=== PATIENT | male | born 1965 | race Caucasian/White ===

== ENCOUNTER 2020-01-30 14:24 | Inpatient (IN) | payer OTHER ==
[~2020-01-30] VITALS: Ht 170.2 cm; Wt 50.0 kg
[2020-01-30 14:27] VITALS: Ht 170.2 cm; Wt 50.0 kg
--- NOTE | 2020-01-30 14:37 | NUR ---
TO [place] AREA VIA W/C.
--- NOTE | 2020-01-30 14:40 | NUR ---
PT ASSISTED TO BED AND PLACED ON MONITOR. PT AAOX4 WITH C/O INCREASED SWELLING IN BLE AND STOMACH WITH INCREASED SOB WITH EXERTION X 3 WEEKS. PT ALSO STATES BLISTER FORMATION WITH DRAINAGE TO BLE. PT NOTED TO HAVE 3+ PITTING EDEMA WITH A DRAINING BLISTER TO LLE AND A LARGE ROUND ABD. PT NOTED WITH DISCOLORATION TO ALL EXTREMITES AND INCREASED SOB WITH EXERTION/SPEAKING. PT STATES HE HAD POLYURIA 3 WEEKS AGO WHEN ALL HIS SYMPTOMS STARTED GETTING WORSE WITH DARK URINE BUT HAS SINCE STOPPED. PT STATES HE HAS NOT SEEN HIS PCP IN OVER A YEAR. EMT AT BEDSIDE FOR EKG.
[2020-01-30 15:29] LABS: BASOPHIL % 0.6 % (0-2); PLATELET COUNT 248 x10^3mcL (130-400)
[2020-01-30 15:32] LABS: RED CELL DISTRIBUTION WIDTH 16.3 % (11.5-14.5)
--- NOTE | 2020-01-30 15:33 | NUR ---
PLACED PT ON 10L SIMPLE MASK PER ABG RESULT. OK PER DR. HUNT. PT SPO2:100%.
--- NOTE | 2020-01-30 15:35 | NUR ---
EDITORIAL CLERK HERE, APPLIED HIGH FLOW O2 MASK BECAUSE OF ABNORMAL ABG RESULTS.
--- NOTE | 2020-01-30 15:41 | NUR ---
RADIOLOGY DEPT AT BEDSIDE, PORTABLE CXR COMPLETED. STILL HAS PANTING TYPE RESPIRATIONS. ALERT.
[2020-01-30 15:54] LABS: CARBON DIOXIDE 23.5 mmol/L (21-32); CHLORIDE SERUM 101 mmol/L (98-107); CREATININE SERUM 1.9 mg/dL (0.7-1.3); GFR1 40 mL/min; GLUCOSE SERUM 81 mg/dL (74-106); POTASSIUM SERUM 4.5 mmol/L (3.5-5.1); SODIUM SERUM 136 mmol/L (136-145)
[2020-01-30 16:01] LABS: ALKALINE PHOSPHATASE 116 U/L (46-116); ALT/SGPT 43 U/L (16-63); AST/SGOT 64 U/L (15-37); BILIRUBIN TOTAL 2.81 mg/dL (0.20-1.00); C REACTIVE PROTEIN 5.7 mg/dL (<=0.9); LACTIC DEHYDROGENASE (LDH) 404 U/L (100-190)
[2020-01-30 16:12] LABS: ALBUMIN 2.7 g/dL (3.4-5.0)
--- NOTE | 2020-01-30 16:17 | NUR ---
ultra sound dept at bedside. portable ultra sound of lower ext in progress.
--- NOTE | 2020-01-30 16:28 | NUR ---
PT STATED HE TAKES BP MED, DOESN'T KNOW THE NAME. NOTED ON MED REC.
--- NOTE | 2020-01-30 16:50 | NUR ---
IV BOLUS IN RT AC PATENT. PORTABLE ULTRA SOUND COMPLETED.
--- NOTE | 2020-01-30 17:14 | NUR ---
TO CT VIA [place] AT THIS TIME.
--- NOTE | 2020-01-30 17:40 | NUR ---
RETURNS FROM CT AT THIS TIME
--- NOTE | 2020-01-30 17:43 | NUR ---
DR. PRICE HERE AT BEDSIDE SPEAKING WITH PT. 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
--- NOTE | 2020-01-30 18:55 | NUR ---
LAYING ON RT SIDE. SATURATIONS STABLE @ 99 - 100 %. REMAINS IN S.T. IN THE 130'S. LOWER EXT CONTINUE TO BE MOTTLED.
--- NOTE | 2020-01-30 19:20 | NUR ---
REPORT CALLED TO VAUGHN IN ICU. SENIOR PORTFOLIO ANALYST STAFF REMINDED TO TRANSPORT PT UP [place]. PT IS ALERT, TALKING ON HIS CELL PHONE. VITAL SIGNS STABLE. HR CONTINUES TO BE TACHY IN 130'S.
[2020-01-30 20:21] VITALS: BP 108/78
--- NOTE | 2020-01-30 20:53 | NUR ---
RECEIVED PT FROM [facility]. PT IS STABLE ON 10L REGULAR MASK. PT BREATHING IS E/U. LUNG SOUNDS ARE CRACKLES UPPER/LOWER LOBES BILATERALLY. PT V/S TEMP 97.5, BP 108/78, MAP 86, RR 24, O2 98%. PT IS SINUS TACHY. PT IS AMBULATORY BUT USING URINAL AT THIS TIME. PT HAS EDEMA BUE/BLE +3. PT IS ON 10L REGULAR MASK. PT IS A/O X 4. BED IN LOW POSITION.
--- NOTE | 2020-01-30 21:30 | NUR ---
PT REQUESTING FOOD. NO DIET IN THE SYSTEM. PT CURRENTLY HAS ICE CHIPS. P/CALL TO DR BERNARD REQUESTED DIET FOR PT. ENTERED CARDIAC DIET. CAFATERIA CLOSED AT THIS TIME. GAVE PT SANDWHICH, MILK AND A PUDDING.
[2020-01-30 23:55] VITALS: BP 118/89
[2020-01-31 00:05] VITALS: BP 118/89
--- NOTE | 2020-01-31 00:10 | NUR ---
PHONE CALL FROM LAB REPORTING LACTIC ACID OF 5.9. PAGED DR ROMERO. RECEIVED CALL BACK INFORMED HER OF NEW LACTIC ACID VALUE AND PREVIOUS VALUE AT 1820 OF 4.6. SHE WILL REVIEW. NO NEW ORDERS AT THIS TIME.
--- NOTE | 2020-01-31 00:53 | NUR ---
ORDER ENTERED FOR SCD'S. UNABLE TO PUT SCD'S ON THE PATIENT WITH CONDITION OF HIS LEGS. PT DOES MOVE AROUND AND REPOSITION IN BED OFTEN.
[2020-01-31 03:39] VITALS: BP 130/92
--- NOTE | 2020-01-31 04:39 | NUR ---
PHONE CALL TO DR. ROMERO DUE TO PATIENT HR 143 AND RR'S 37. AWAITING ORDERS.
--- NOTE | 2020-01-31 05:52 | NUR ---
PT COMPLAINING OF NAUSEA. GAVE ZOFRAN
--- NOTE | 2020-01-31 06:14 | NUR ---
UNABLE TO OBTAIN ABG. DR ROMERO MADE AWARE.
[2020-01-31 08:00] VITALS: BP 109/71
--- NOTE | 2020-01-31 10:53 | NUR ---
PT REMAINS STABLE AT THIS TIME. REMAINS ON 10L O2 VIA SIMPLE MASK. NO C/O PAIN OR DISTRESS. NV COOPERATIVE WITH CARE. IV'S INTACT AND [ATENT. WILL CONT TO MONITOR.
[2020-01-31 12:00] VITALS: BP 102/75
[2020-01-31 13:04] LABS: BASOPHIL % 1.9 % (0-2); PLATELET COUNT 207 x10^3mcL (130-400)
[2020-01-31 13:06] LABS: RED CELL DISTRIBUTION WIDTH 16.6 % (11.5-14.5)
[2020-01-31 13:07] LABS: BILIRUBIN DIRECT 1.96 mg/dL (0.0-0.2); BILIRUBIN TOTAL 2.66 mg/dL (0.20-1.00)
[2020-01-31 13:11] LABS: ALBUMIN 2.6 g/dL (3.4-5.0)
[2020-01-31 13:25] LABS: CALCIUM 9.1 mg/dL (8.5-10.1); CARBON DIOXIDE 21.3 mmol/L (21-32); CREATININE SERUM 1.6 mg/dL (0.7-1.3); MAGNESIUM 1.9 mg/dL (1.8-2.4); PHOSPHOROUS 4.2 mg/dL (2.5-4.9); POTASSIUM SERUM 4.3 mmol/L (3.5-5.1)
--- NOTE | 2020-01-31 13:52 | NUR ---
PICC LINE NURSE, RIOS CALLED. TOA 1600 FOR PICC INSERTION.
--- NOTE | 2020-01-31 14:44 | NUR ---
PT PLACED ON NPO STATUS AT THID TIME FOR ABDOMINAL US SCHEDULAED LATER. PT MADE AWARE.
[2020-01-31 15:20] VITALS: BP 129/88
--- NOTE | 2020-01-31 18:20 | NUR ---
PICC RN KERI AT BEDSIDE FOR PICC INSERTION. PT STABLE AT THIS TIME.
--- NOTE | 2020-01-31 19:21 | NUR ---
REPORT GIVEN TO GABINO MENDES. ALL QUESTIONS ANSWERED.
--- NOTE | 2020-01-31 19:25 | NUR ---
XRAY, ULTRASOUND BOTH HERE AT THIS TIME.
[2020-01-31 20:10] VITALS: BP 125/90
--- NOTE | 2020-01-31 22:25 | NUR ---
COLLECTED URINE SAMPLE FROM PT, SENT TO LAB
--- NOTE | 2020-01-31 22:40 | NUR ---
DR. FUNES REQUESTING UPDATE ON PT. GAVE UPDATE. DR SORTO'Briigdo ZOSYN AND VANCOMYCIN AND REQUESTED ROCEPHEN ORDERED 1G DAILY. PLACED ORDER IN SYSTEM.
[2020-02-01] VITALS (7 sets, daily range): BP systolic 127–148; BP diastolic 50–100
[2020-02-01 00:26] LABS: UA SPECIFIC GRAVITY 1.025 (1.005-1.035); microscopic required? YES; urine erythrocyte NEGATIVE (NEGATIVE)
[2020-02-01 00:58] LABS: AMPHETAMINE QUAL UR POSITIVE (See below)
[2020-02-01 06:09] LABS: BASOPHIL % 0.9 % (0-2); PLATELET COUNT 215 x10^3mcL (130-400)
[2020-02-01 06:20] LABS: CALCIUM 8.9 mg/dL (8.5-10.1); CARBON DIOXIDE 26.6 mmol/L (21-32); CREATININE SERUM 1.4 mg/dL (0.7-1.3); MAGNESIUM 1.8 mg/dL (1.8-2.4); PHOSPHOROUS 3.6 mg/dL (2.5-4.9); POTASSIUM SERUM 3.9 mmol/L (3.5-5.1)
[2020-02-01 06:21] LABS: RED CELL DISTRIBUTION WIDTH 16.5 % (11.5-14.5)
--- NOTE | 2020-02-01 06:26 | NUR ---
DR SKINNER REQUESTING UPDATE ON PATIENT. PT NOW ON REBREATHER MASK 15L O2 SATS NOW IN THE 90'S/100. PT IS REQUESTING BANDAGE CHANGE AND WOUND CARE FOR HIS LEG (BANDAGED). LET DR KNOW HE STATES HE WILL PUT IN WOUND CONSULT. PT AMBULATORY, SITS ON EDGE OF BED AND REPOSITIONS HIMSELF. NO NEW ORDERS, ALL QUESTIONS ANSWERED.
--- NOTE | 2020-02-01 07:38 | NUR ---
PATIENT HR IN THE 150-160. PATIENT ASSESSED AT THIS TIME AND STATES " NO CHEST PAIN, I AM FINE" DR BARAJAS PAGED. PATIENT STABLE AT THIS TIME, WILL CONTINUE TO MONITOR.
--- NOTE | 2020-02-01 08:13 | NUR ---
DR SHERIFF AT BEDSIDE. ALL UPDATES PROVIDED. NEW ORDERS TO CARRY OUT.
--- NOTE | 2020-02-01 08:15 | NUR ---
DR SHERIFF AT BEDSIDE ALL UPDATES PROVIDED, NO NEW ORDERS AT THIS TIME. PATIENT STABLE WILL CONTINUE TO MONITOR
--- NOTE | 2020-02-01 10:26 | NUR ---
DR ABBASI AND RESIDENTS AT BEDSIDE. ALL UPDATES PROVIDED AT THIS TIME. AWAITING NEW ORDERS. WILL CONT TO MONITOR PT.
--- NOTE | 2020-02-01 10:36 | NUR ---
dr don and residents at bedside. all updates given no new orders at this time.
--- NOTE | 2020-02-01 14:50 | NUR ---
WOUND NURSE, KORI AT BEDSIDE FOR WOUND CONSULT.
--- NOTE | 2020-02-01 15:30 | NUR ---
PT IS NOW ON 8L O2 VIA OXIMIZER. TOLERATING WELL. NO DISTRESS NOTED, BREATHING E/U. O2 SAT >95%. WILL CONTINUE TO MONITOR.
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
--- NOTE | 2020-02-01 16:28 | NUR ---
TYING MACHINE OPERATOR LUMBER NOT HERE AT THIS TIME AND UNABLE TO DO ECHO, WILL DO TOMORROW MORNING. DR BARJAAS INFORMED.
--- NOTE | 2020-02-01 18:30 | NUR ---
DR CORNEJO AT BEDSIDE. ALL UPDATES PROVIDED. MADE AWARE OF PT'S HR >[address] ASSESSING PT AT THIS TIME. NO NEW ORDERS.
--- NOTE | 2020-02-01 19:17 | NUR ---
REPORT GIVEN TO GABINO PARK. ALL QUESTIONS ANSWERED.
--- NOTE | 2020-02-01 19:38 | NUR ---
RECEIVED REPORT FROM OFFGOING RN. PATIENT HAS BEEN SEEN BY THE NOTEMAN AND IS WISHING TO LEAVE AMA. DR ROMERO INFORMED. DR. SAINZ WITH PATIENT'S WISH.
--- NOTE | 2020-02-01 20:51 | NUR ---
DR ROMERO SPOKE WITH THE PATIENT WHO ADMITTED TO BEING AFRAID OF HIS ILLNESS. PATIENT HAS STATED HE WILL "HANG AROUND." PATIENT COOPERATIVE AT THIS TIME. ABLE TO PUT MONITOR LEADS ON HIM, BP CUFF AND PULSE OXIMETER. PATIENT STATED HE WAS HUNGRY AND WANTED A PEANUT BUTTER AND JELLY SANDWICH AND MILK. SAME GIVEN TO PATIENT. HE IS USING THE BEDSIDE COMMODE TO HAVE A BM.
--- NOTE | 2020-02-01 21:00 | NUR ---
PATIENT UP TO BEDSIDE COMMODE TO PASS BM. LARGE, BROWN, SOFTFORMED STOOL RESULTED.
[2020-02-02] VITALS: BP 96/68
[2020-02-02 04:00] VITALS: BP 163/98
[2020-02-02 05:54] LABS: BASOPHIL % 0.6 % (0-2); PLATELET COUNT 214 x10^3mcL (130-400)
[2020-02-02 06:04] LABS: RED CELL DISTRIBUTION WIDTH 16.7 % (11.5-14.5)
[2020-02-02 06:09] LABS: CALCIUM 9.1 mg/dL (8.5-10.1); CHLORIDE SERUM 100 mmol/L (98-107); CREATININE SERUM 1.1 mg/dL (0.7-1.3); GFR1 > 60 mL/min; GLUCOSE SERUM 127 mg/dL (74-106); MAGNESIUM 1.8 mg/dL (1.8-2.4); PHOSPHOROUS 3.3 mg/dL (2.5-4.9); POTASSIUM SERUM 3.8 mmol/L (3.5-5.1); SODIUM SERUM 135 mmol/L (136-145)
[2020-02-02 08:00] VITALS: BP 160/112
--- NOTE | 2020-02-02 10:27 | NUR ---
PT STATES "I WANT TO GO HOME" PER PT WANTS TO SPEND THANKSGIVING WITH MOTHER AT HOME THEN HE WILL COME BACK TO HOSPITAL, PT WAS EDUCATED ON HIS RIGHT TO LEAVE AGAINST MEDICAL ADVICE AND RISK INVOVLED, PT NONCOMPLIANT, TAKES LEADS, PULSE OX, AND BP CUFF OFF, MD JENN HURD MD AWARE PT WANTS TO GO AMA AND WILL COME DOWN TO SPEAK TO PT SHORTLY
--- NOTE | 2020-02-02 10:55 | NUR ---
PT STATES HE WILL STAY IN HOSPITAL UNTIL DIRECTOR SALES AND MARKETING COMES TO SEE HIM, PT SAYS HE STILL WANTS TO GO HOME SO HIS MOTHER DOES NOT SPEND THANKSGIVING ALONE, AGREES TO STAY FOR NOW, PT AWARE HE WILL BE TRANSFERED TO TELEMETRY
--- NOTE | 2020-02-02 14:05 | NUR ---
REPORT GIVEN TO REBECCA LLOYD, ALL PT BELONGINGS INCLUDING CELLPHONE, SENIOR BUSINESS CONSULTANT, AND PT WALLET TRANSFERED WITH PT, PT IN AGREEMENT WITH TRANSFER 1400 MEDICATION HAS NOT ARRIVED. 2049 U/O VIA URINAL, PT HAD 1 LARGE SOFT BM VIA BEDSIDE COMMODE IN EARLY AM, AND SANDWHICH X3, X1 JELLOW AND 2 DIET SODAS, TRANSFERING VIA WHEELCHARI
--- NOTE | 2020-02-02 14:48 | NUR ---
1. Continue with Cardiac diet
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
[2020-02-02 14:50] VITALS: BP 144/101
--- NOTE | 2020-02-02 14:50 | NUR ---
RECEIVED PT FROM ICU. PT AAOX4. DENIES PAIN. VS STABLE. NO ACUTE DISTRESS OR EMERGENT ISSUES. SEE MAR FOR VS AND WILL ASSESS FURTHER/CONTINUE TO MONITOR.
[2020-02-02 16:56] VITALS: BP 144/101
--- NOTE | 2020-02-02 19:30 | NUR ---
RECEIVED REPORT FROM REBECCA AND ALL QUESTIONS ANSWERED AND ASSUMED CARE AND TREATMENT
--- NOTE | 2020-02-02 19:40 | NUR ---
ENDORSED PT TO NIGHT NURSE. NO ACUTE DISTRESS SINCE TRANSFER FROM ICU. 95% SAO2 ON ROOM AIR. HE IS AMBULATORY AND ABLE TO MEET BASIC NEEDS. CONSISTENTLY DENIES PAIN. ULCERS ON POSTERIOR RLE AND ANTERIOR LLE, DRESSED CDI. HEEL PROTECTORS ORDERED AND IN ROOM, LE ELEVATED ON PILLOW. TOLERATING DIET WELL.
--- NOTE | 2020-02-02 20:00 | NUR ---
RECIEVED PT WALKING AROUND IN THE ROOM ALERT AND ORIENTED X4 HEP LOCK IV INTACT AND PATENT. LUNGS DIMINISHED BILAT.ON RA O2SAT 96% APPEARS ANXIOUS. ASKING SOMETHING TO EAT SANDWICH GIVEN AND ATE WELL.ABDOMEN DISTENDED BUT SOFT W/ ACTIVE BOWEL SOUND.VOIDING ADEQUATE AMT. NO DISTRESS NOTED.
[2020-02-02 21:20] VITALS: BP 116/84
--- NOTE | 2020-02-03 00:03 | NUR ---
WALKING AROUND AND APPEARS ANXIOUS.ASKED FOR PULSE READING. CHECKED PULSE OXIMETER 96%. ASKE IF PT HAS SOB SAID NO.ASKED FOR MORE SNACK AND GIVEN SANDWITCH AND TRINI. WENT TO SLEEP AFTER.
[2020-02-03 05:25] VITALS: BP 124/89
[2020-02-03 07:01] LABS: BASOPHIL % 0.3 % (0-2); PLATELET COUNT 235 x10^3mcL (130-400)
[2020-02-03 07:17] LABS: CALCIUM 8.7 mg/dL (8.5-10.1); CARBON DIOXIDE 29.1 mmol/L (21-32); CHLORIDE SERUM 99 mmol/L (98-107); GFR1 > 60 mL/min; GLUCOSE SERUM 91 mg/dL (74-106); PHOSPHOROUS 2.8 mg/dL (2.5-4.9); POTASSIUM SERUM 3.8 mmol/L (3.5-5.1); SODIUM SERUM 134 mmol/L (136-145)
--- NOTE | 2020-02-03 07:33 | NUR ---
RECEIVED PT FROM NIGHT NURSE. HE IS ALERT AND AWAKE. NO APPARENT ACUTE DISTRESS. WOUND DRESSING CHANGED AND NOW CDI. WILL CONTINUE TO MONITOR.
[2020-02-03 08:31] VITALS: BP 126/78
[2020-02-03] MEDS ORDERED: TAMIFLU30 MG PO (11:29)
[2020-02-03] MEDS ORDERED: LASIX40 MG PO (11:31)
[2020-02-03] MEDS ORDERED: SILDENAFIL CITR20 MG PO (11:32)
[2020-02-03 11:43] VITALS: BP 127/92
[2020-02-03 12:30] LABS: CHOLESTEROL/HDL RATIO 4.5
[2020-02-03] MEDS ORDERED: ASPIR 8181 MG PO (12:35)
[2020-02-03 13:14] VITALS: BP 127/92
--- NOTE | 2020-02-03 13:45 | NUR ---
PT EDUCATED ABOUT DISCHARGE RESPONSIBILITIES AND LIFESTYLE CHANGES. HE REPORTED HAVING A SUPPORT SYSTEM AND VERBALIZED UNDERSTANDING OF THE INSTRUCTIONS. PT VS ARE STABLE, TELE DC AND HAS SIGNED ALL NECESSARY PAPERWORK. HE IS AAOX4 AND AMBULATORY. NO ACUTE DISTRESS NOTED. AWAITING PICC LINE REMOVAL, WILL BE DISCHARGED WHEN COMPLETED.
== END 2020-02-03 14:23 | disposition home or self-care (01) | DRG 720 ==
LOC: ED 14:24 → IC 17:32 → DU 02-02 14:58
PROVIDERS: Emergency Medicine; ADMIT Family Medicine; ATTEND Family Medicine
DX: A41.9 Sepsis, unspecified organism (principal); J96.01 Acute respiratory failure with hypoxia; N17.0 Acute kidney failure with tubular necrosis; R65.21 Severe sepsis with septic shock; E43 Unspecified severe protein-calorie malnutrition; R18.8 Other ascites; D75.1 Secondary polycythemia; I11.0 Hypertensive heart disease with heart failure; I50.9 Heart failure, unspecified; K74.60 Unspecified cirrhosis of liver; Z20.828 Contact with and (suspected) exposure to other viral communicable diseases; R23.0 Cyanosis; L03.116 Cellulitis of left lower limb; L03.115 Cellulitis of right lower limb; Z68.36 Body mass index [BMI] 36.0-36.9, adult
CPT/HCPCS: 36600; 83880; 85378; 87804; G0378; J0696; J1100; J1940; J2405; J2543; J3370; J3535; J7030; Q9967; U0003

== ENCOUNTER 2020-02-09 06:17 | Inpatient (IN) | payer OTHER ==
[~2020-02-09] VITALS: Ht 170.2 cm; Wt 104.3 kg
[~2020-02-09 06:17] MED LIST: ASPIR 8181 MG PO; LASIX40 MG PO; SILDENAFIL CITR20 MG PO; TAMIFLU30 MG PO
[2020-02-09 06:36] VITALS: Ht 170.2 cm; Wt 104.3 kg
--- NOTE | 2020-02-09 06:51 | NUR ---
PATIENT ARRIVED TO ED T1 FROM TRIAGE FOR LEFT LEG SWELLING. PATIENT EXPLAINED THAT HE HAD "LEFT LEG SWELLING FOR THE PAST TWO DAYS AND "I THOUGHT IT WAS GOING TO GO AWAY. THIS IS THE WORST IT HAS GOTTEN." PATIENT CAME TO [facility] ON 02/03/20 WITH BREATHING PROBLEM AND "RIGHT SIDE OF [PATIENT'S] HEART HAD A LOT OF FLUID. THEY TESTED PATIENT FOR COVID AND [PATIENT'S] BREATHING WAS MANAGED." PATIENT EXPLAINED THAT LEFT LEG WAS LEAKING THE WHOLE TIME AND LEGS WERE "SWELLED UP." PATIENT WAS WEARING TIGHT PANTS AND NOTICED THE LEFT LEG "STARTED SWELLING UP." PATIENT TOOK "INFLUENZA MEDICATION (TAMIVIR)." PRIOR TO ARRIVAL IN ED TODAY. DR. HUNT AT BEDSIDE TO MSE PATIENT. WILL CONTINUE TO MONITOR.
--- NOTE | 2020-02-09 07:37 | NUR ---
REPORT GIVEN TO GABINO SHIPLEY FOR CONTINUITY OF CARE. PATIENT IN STABLE CONDITION. NO DISTRESS NOTED.
--- NOTE | 2020-02-09 07:47 | NUR ---
ULTRA SOUND DEPT AT BEDSIDE. LOWER EXT SONOGRAPHY IN PROGRESS.
[2020-02-09 08:07] LABS: PLATELET COUNT 235 x10^3mcL (130-400); RED CELL DISTRIBUTION WIDTH 17.3 % (11.5-14.5)
[2020-02-09 08:45] LABS: CARBON DIOXIDE 28.5 mmol/L (21-32); CHLORIDE SERUM 99 mmol/L (98-107); CREATININE SERUM 1.4 mg/dL (0.7-1.3); GFR1 56 mL/min; GLUCOSE SERUM 125 mg/dL (74-106); POTASSIUM SERUM 4.3 mmol/L (3.5-5.1); SODIUM SERUM 136 mmol/L (136-145)
[2020-02-09 08:50] LABS: ALKALINE PHOSPHATASE 235 U/L (46-116); ALT/SGPT 55 U/L (16-63); AST/SGOT 63 U/L (15-37); BILIRUBIN TOTAL 3.35 mg/dL (0.20-1.00); TOTAL PROTEIN, SERUM 7.3 g/dL (6.4-8.2)
[2020-02-09 08:57] LABS: ALBUMIN 2.4 g/dL (3.4-5.0)
--- NOTE | 2020-02-09 09:13 | NUR ---
OBSERVED SLEEPING QUIETLY AT THIS TIME. OBSERVED COOL HAND, DISCOLORED. POOR CAPILLARY REFILL
--- NOTE | 2020-02-09 10:35 | NUR ---
OBSERVED TALKING ON MOBILE PHONE TO FAMILY. NO GRIMACING.
--- NOTE | 2020-02-09 11:14 | NUR ---
ADMITTING DOCTOR AT BEDSIDE SPEAKING WITH PT.
[2020-02-09 11:17] LABS: UA SPECIFIC GRAVITY >=1.030 (1.005-1.035); microscopic required? YES; urine erythrocyte TRACE (NEGATIVE)
--- NOTE | 2020-02-09 11:58 | NUR ---
REPORT CALLED TO [facility] ON 2ND FLOOR.
--- NOTE | 2020-02-09 12:00 | NUR ---
PT BROUGHT TO UNIT ON GURNEY WITH EMT.M/S DELANO. AAOX4, FOLLOWS COMMANDS BREATHING E/U TO 3L O2 VIA NC CHEST RISE AND FALL SYMMETRIC LUNG SOUNDS CLEAR. S1,S2 NOTED. NO CHEST PAIN NOTED. PULSES+2 BUE. +1FAINT PULSES BLE. +1 NON-PITTING EDEMA RLE, +2 NON-PITTING EDEMA LLE. BILATERAL LOWER EXTREMITIES ASHEN AND MOTTLED IN APPERANCE. BOWEL SOUNDS NORMOACTIVE, ABD SOFT-NON TENDER.VODING FREELY. 22G IV RAC CDI, 1X1CM ULER LLE. BED IN LOWEST POSITION, CALL LIGHT IN REACH WILL CONTINUE TO MONITOR.
[2020-02-09 17:00] VITALS: BP 135/92
--- NOTE | 2020-02-09 18:46 | NUR ---
PT REMAMINS IN BED BREATHING E/U TO 3L O2 VIA NC. NO RESP DISTRESS NOTED. DENIES PAIN AT THIS TIME. IV CDI. BED IN LOWEST POSITION, CALL LIGHT IN REACH WILL ENDORSE TO MEMORIAL COUNSELOR NURSE.
--- NOTE | 2020-02-09 20:00 | NUR ---
PATIENT AWAKE, ALERT, ORIENTED X4. RESPIRATION EVEN AND UNLABORED, ON O2 3L PER NASAL CANNULA. ONGOING 0.9% NS AT KVO INFUSING WELL AT THE R ANTECUBITAL. +2 EDEMA TO LLE, +1 EDEMA TO RLE. DENIES GI DISCOMFORT, LBM 12/2. VOIDING FREELY WITHOUT DIFFICULTY, USES URINAL. GENERALIZED WEAKNESS, AMBULATES WITH ASSIST. WOUND TO L LEG, FELT CUTTING MACHINE OPERATOR, SKIN ASHEN/MOTTLED. DENIES PAIN AT THIS TIME. PLACED CALL LIGHT WITHIN REACH. WILL CONTINUE TO MONITOR.
[2020-02-09 20:01] VITALS: BP 135/79
[2020-02-09 20:48] LABS: AMPHETAMINE QUAL UR POSITIVE (See below)
--- NOTE | 2020-02-09 21:32 | NUR ---
PATIENT COMPLAINED OF L LEG PAIN, 10/10. MEDICATED WITH MORPHINE SULFATE 2 MG IVP ORDERED. WILL CONTINUE TO MONITOR.
--- NOTE | 2020-02-10 02:32 | NUR ---
PATIENT RESTLESS, CAN'T SLEEP, C/O L LEG PAIN 8/. MEDICATED WITH MORPHINE SULFATE 2 MG IVP ORDERED. WILL CONTINUE TO MONITOR.
[2020-02-10 05:21] VITALS: BP 134/97
--- NOTE | 2020-02-10 06:19 | NUR ---
PATIENT RESTING IN BED, RESPIRATION EVEN AND UNLABORED, ON O2 3L PER NASAL CANNULA. IV SITE NO SIGN OF INFILTRATION. MEDICATED WITH NORCO 7.5 MG PO FOR L LEG PAIN. ASSISTED WITH NEEDS. SAFETY OBSERVED. PLACED BED IN THE LOWEST POSITION. PLACED CALL LIGHT WITHIN REACH AT ALL TIMES.
[2020-02-10 07:41] LABS: CALCIUM 8.7 mg/dL (8.5-10.1); CARBON DIOXIDE 26.8 mmol/L (21-32); CHLORIDE SERUM 99 mmol/L (98-107); CREATININE SERUM 1.3 mg/dL (0.7-1.3); GFR1 > 60 mL/min; GLUCOSE SERUM 76 mg/dL (74-106); PHOSPHOROUS 4.7 mg/dL (2.5-4.9); POTASSIUM SERUM 4.3 mmol/L (3.5-5.1); SODIUM SERUM 135 mmol/L (136-145)
--- NOTE | 2020-02-10 08:00 | NUR ---
PT REMAINS IN BED ASLEEP BREATHING E/U TO 3L O2 VIA NC. NO RESP DISTRESS OR ACUTE PAIN NOTED.BUE & BLE ASHEN AND MOTTLED. BLE +2EDEMA. L-LEG MARTIN, ELEVATED. L-LEG PAINFUL TO TOUCH AND WITH MOVEMENT. WILL CONTINTUE TO MONITOR. BED IN LOWEST POSTION, CALL LIGHT IN REACH.
[2020-02-10 08:29] LABS: BASOPHIL % 0.4 % (0-2); PLATELET COUNT 216 x10^3mcL (130-400)
[2020-02-10 08:38] VITALS: BP 102/57
[2020-02-10 08:58] LABS: RED CELL DISTRIBUTION WIDTH 15.7 % (11.5-14.5)
--- NOTE | 2020-02-10 10:17 | NUR ---
PT SEEN BY WOUND CARE NURSE KORI. KERLIX AND SENA WRAP APPLIED TO LLE, EXTREMITY ELEVATED ON PILLOW. PT DENIES PAIN AT THIS TIME. WILL CONTINUE TO MONITOR.
--- NOTE | 2020-02-10 11:15 | NUR ---
WOUND ASSESSMENT DONE TO THIS 54 Y/O MALE PT. PER PT'S H&P VENOUS DOPPLER - NO RIGHT OR LEFT FEMOROPOPLITEAL VENOUS THROMBOSIS. "ARTERIAL DOPPLER FROM LAST ADMISSION - MONOPHASIC WAVEFORMS SUGGESTS DIFFUSE ATHEROSCLEROTIC CHANGES. NO HEMODYNAMICALLY SIGNIFICANT STENOSIS OR OCCLUSION IS SEEN." POC DISCUSSED, WOUND CARE INSTRUCTIONS AND TEACHING DONE TO PT. PT. VERBALIZES UNDERSTANDING. PER PT. HE AND HIS FAMILY ABLE TO PROVIDE WOUND CARE AT HOME WITH SENA BANDAGE WRAPING. -BILATERAL LEFT LOWER LEG STASIS ULCERS, SKIN WARM ERYTHEMA, +2 EDEMA ULCER LEFT SOSA 1X1CM SUPERFICIAL DEPTH, WOUND BED IS SHINY YELLOW TISSUE JOHAN-WOUND SKIN INTACT,MOIST NO ODOR, PAIN 0/10 RECOMMENDATIONS: -CLEANSE LEFT SOSA ULCERS WITH NS, PAT DRY, APPLY XEROFORM DRESSING AND WRAP WITH KERLIX ROLL AND SENA FROM DORSAL FOOT UP TO BELOW KNEE 3X/WEEK AND PRN IF SOILING -PLEASE KEEP BLE ELEVATED -OFFLOAD BILATERAL HEELS BY PLACING PILLOWS UNDER CALVES AT ALL TIMES, UNLESS OTHERWISE CONTRAINDICATED -PRESSURE REDISTRIBUTION BY PLACING PILLOWS AND OFFLOADING SACRALCOCCYX -KEEP SKIN CLEAN AND DRY AT ALL TIMES. ALL ABOVE RECOMMENDATIONS DISCUSSED WITH PRIMARY RN PLEASE CONTACT WOUND CARE NURSE FOR ANY QUESTION AND CHANGE OF WOUND
[2020-02-10 12:10] VITALS: BP 118/88
--- NOTE | 2020-02-10 12:33 | NUR ---
PT REMAINS IN BED SLEEPING BREATHING E/U TO RA. NO ACUTE C/O OF PAIN.IV INFUSING IVPB ABX WELL, BED IN LOWEST POSITION, CALL LIGHT REACTION.WILL CONTINUE TO MONITOR.
[2020-02-10 15:55] VITALS: BP 125/77
[2020-02-10 15:57] VITALS: BP 122/90
--- NOTE | 2020-02-10 18:27 | NUR ---
PT REMAINS IN BED BREATHING E/U TO RA.NO RESPIRATORY DISTRESS NOTED.NO ACUTE PAIN. IV ABX CURRENTLY INFUSING IN NEW 22G IV IN R-THUMB. IV CDI. INSTRUCTED PATIENT TO NOT MOVE RIGHT HAND WHILE INFUSING. BED IN LOWEST POSITION, CALL LIGHT IN REACH WILL ENDORSE TO MAILING MACHINE ASSISTANT NURSE.
[2020-02-10 19:55] VITALS: BP 127/87
--- NOTE | 2020-02-10 20:20 | NUR ---
RECEIVED PT FROM AM NURSE. A/O X4. NO ACUTE RESP DISTRESS NOTED, BREATHING EVEN AND UNLABORED LS CTA ON RA. DENIES CP/PRESSURE AT THIS TIME. PULSES WEAK B/L, +2 PITTING EDEMA TO LLE, +1 EDEMA TO RLE. BS+, BSC. VOID FREELY. ALL SAFETY PRECAUTIONS IN PLACE. WILL CONT TO MONITOR.
--- NOTE | 2020-02-11 | NUR ---
PT C/O 10/10 SHARP PAIN IN L LEG. GIVEN MORPHONE PER EMAR. WILL CONT TO MONITOR.
--- NOTE | 2020-02-11 05:07 | NUR ---
PT C/O 12/17 PAIN, GIVEN MORPHINE PER EMAR. WILL CONT TO MONITOR.
[2020-02-11 05:30] VITALS: BP 134/90
--- NOTE | 2020-02-11 07:30 | NUR ---
RECEIVED PT FROM NIGHT NURSE. PT SLEEPING WITH EVEN BREATHING OBSERVED. VS STABLE AND NO ACUTE DISTRESS NOTED. WILL CONTINUE TO MONITOR.
[2020-02-11 07:38] LABS: CALCIUM 8.5 mg/dL (8.5-10.1); CARBON DIOXIDE 27.9 mmol/L (21-32); CHLORIDE SERUM 100 mmol/L (98-107); CREATININE SERUM 1.2 mg/dL (0.7-1.3); GFR1 > 60 mL/min; GLUCOSE SERUM 94 mg/dL (74-106); MAGNESIUM 2.1 mg/dL (1.8-2.4); PHOSPHOROUS 4.1 mg/dL (2.5-4.9); POTASSIUM SERUM 4.1 mmol/L (3.5-5.1); SODIUM SERUM 136 mmol/L (136-145)
[2020-02-11 07:44] LABS: BASOPHIL % 0.2 % (0-2); PLATELET COUNT 261 x10^3mcL (130-400)
[2020-02-11 08:54] VITALS: BP 136/79
[2020-02-11 12:34] VITALS: BP 126/93
[2020-02-11 18:37] VITALS: BP 133/91
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
--- NOTE | 2020-02-11 19:30 | NUR ---
RECEIVED REPORT FROM GABINO FERNANDEZ AND ALL QUESTIONS ANSWERED AND ASSUMED CARE AND TREATMENT.
--- NOTE | 2020-02-11 20:00 | NUR ---
RECEIVED PT STANDING AT THE FOOT OF THE BED W/ COMPLAINED OF SEVERE PAIN AT THE FOOT.ALERT AND ORIENTED.IV INFUSING WELL AT THE LEFT THUMP AND PATENT.LUNGS CLEAR BILAT.ABDOMEN DISTENDED W/ ACTIVE BOWEL SOUND.RESTING AFTER PAIN MED GIVEN. NO ACUTE DISTRESS NOTED. L
[2020-02-11 21:33] VITALS: BP 118/76
--- NOTE | 2020-02-11 23:59 | NUR ---
COMPLAINED OF PAIN AT THE LEFT LEG. MORPHINE 2MG IVP GIVEN W/ RELIEVED. PRESENT IV SLIGHTLY SWOLLEN AND ATTEMPTED TO RESTART BUT REFUSED.ITS FLUSHINGWELL W/ NO PAIN.
[2020-02-12 04:34] VITALS: BP 130/91
--- NOTE | 2020-02-12 05:21 | NUR ---
CONT ASLEEP SOUND IN BED AT THIS TIME.APPEARS COMFORTABLE.VITAL SIGNS STABLE.
[2020-02-12 08:24] VITALS: BP 129/90
--- NOTE | 2020-02-12 08:25 | NUR ---
RECEIVED PT FROM NIGHT NURSE. AAOX4. C/O ANXIETY AND STATES HE WANTS TO GO HOME. ENCOURAGED TO STAY AND FOLLOW MEDICAL ADVICE. WEAK PULSES IN BILAT LE WITH ASHEN COLOR. HEART SOUNDS NORMAL AND LS CTA. +2 EDEMA LLE +1 RLE. NO SIGNS OF ACUTE DISTRESS. WILL CONTINUE TO MONITOR.
[2020-02-12 08:44] LABS: CALCIUM 8.7 mg/dL (8.5-10.1); CARBON DIOXIDE 24.5 mmol/L (21-32); CHLORIDE SERUM 100 mmol/L (98-107); CREATININE SERUM 1.1 mg/dL (0.7-1.3); GFR1 > 60 mL/min; GLUCOSE SERUM 98 mg/dL (74-106); SODIUM SERUM 135 mmol/L (136-145)
[2020-02-12] MEDS ORDERED: CLEOCIN HCL300 MG PO (11:24)
[2020-02-12] MEDS ORDERED: NORCO1 TA2 PO (11:24)
[2020-02-12 11:33] LABS: BASOPHIL % 0.3 % (0-2); PLATELET COUNT 287 x10^3mcL (130-400)
[2020-02-12 12:29] VITALS: BP 111/66
[2020-02-12 12:52] VITALS: BP 111/66
--- NOTE | 2020-02-12 13:00 | NUR ---
PT TRANSFERRED TO ENTRANCE VIA WHEELCHAIR. HE SIGNED APPROPRIATE DISCHARGE FORMS. HE WAS EDUCATED ON MEDICATION RECONCILIATION AND VERBALIZED UNDERSTANDING. IV REMOVED FROM L THUMB WITH CATHETER INTACT. PAIN CONSISTENTLY DENIED PAIN, HOWEVER BECAME AGITATED OR ANXIOUS AT TIMES. SOB NOTED ON EXERTION. HE WAS EDUCATED ABOUT PROPER WOUND CARE AND VERBALIZED UNDERSTANDING. NO ACUTE DISTRESS NOTED THROUGHOUT SHIFT. VS STABLE AT DISCHARGE.
== END 2020-02-12 13:08 | disposition home or self-care (01) | DRG 720 ==
LOC: ED 06:17 → MU 10:28
PROVIDERS: Emergency Medicine; ADMIT Internal Medicine; ATTEND Internal Medicine
DX: A41.9 Sepsis, unspecified organism (principal); N17.0 Acute kidney failure with tubular necrosis; I27.20 Pulmonary hypertension, unspecified; E66.01 Morbid (severe) obesity due to excess calories; R18.8 Other ascites; I07.1 Rheumatic tricuspid insufficiency; K74.60 Unspecified cirrhosis of liver; L03.116 Cellulitis of left lower limb; Z20.828 Contact with and (suspected) exposure to other viral communicable diseases; F17.210 Nicotine dependence, cigarettes, uncomplicated; F15.10 Other stimulant abuse, uncomplicated; J45.909 Unspecified asthma, uncomplicated; I10 Essential (primary) hypertension; Z68.32 Body mass index [BMI] 32.0-32.9, adult; Z91.19 Patient's noncompliance with other medical treatment and regimen
CPT/HCPCS: 83880; G0378; J0696; J1644; J2270; J2543; J3370; J3490; J7030; J7060

== ENCOUNTER 2020-02-18 02:53 | Inpatient (IN) | payer OTHER ==
[~2020-02-18] VITALS: Ht 213.4 cm; Wt 104.5 kg
[~2020-02-18 02:53] MED LIST changes: +CLEOCIN HCL300 MG PO; +NORCO1 TA2 PO
[2020-02-18 03:09] VITALS: Ht 213.4 cm; Wt 104.5 kg
[2020-02-18 05:18] LABS: BASOPHIL % 1.3 % (0.2-1.5); PLATELET COUNT 358 x10^3mcL (152-348)
[2020-02-18 05:32] LABS: BILIRUBIN TOTAL 4.43 mg/dL (0.20-1.00); C REACTIVE PROTEIN 9.5 mg/dL (<=0.9); CALCIUM 9.4 mg/dL (8.5-10.1); CARBON DIOXIDE 24.4 mmol/L (21-32); CREATININE SERUM 1.6 mg/dL (0.7-1.3); TOTAL PROTEIN, SERUM 7.4 g/dL (6.4-8.2)
[2020-02-18 05:33] LABS: ALBUMIN 2.4 g/dL (3.4-5.0)
[2020-02-18 05:36] LABS: POTASSIUM SERUM 6.5 mmol/L (3.5-5.1)
[2020-02-18 05:37] LABS: RED CELL DISTRIBUTION WIDTH 16.5 % (12.1-16.2)
[2020-02-18 07:58] LABS: UA SPECIFIC GRAVITY >=1.030 (1.005-1.035); microscopic required? YES; urine erythrocyte NEGATIVE (NEGATIVE)
[2020-02-18 11:34] LABS: PHOSPHOROUS 5.2 mg/dL (2.5-4.9)
[2020-02-18 11:39] LABS: CHOLESTEROL/HDL RATIO 8.6
[2020-02-18 11:40] LABS: rbc morphology (normal/abnorm) NORMAL (NORMAL)
[2020-02-18 11:55] LABS: AMPHETAMINE QUAL UR POSITIVE (See below)
[2020-02-18 12:02] LABS: FREE T4 1.15 ng/dL (0.76-1.46); FREE THYROXINE INDEX 2.6 ug/dL (1.4-4.5); T4(THYROXINE) 6.8 ug/dL (4.7-13.3)
[2020-02-18] MEDS ORDERED: CLEOCIN HCL300 MG (12:05)
[2020-02-18] MEDS ORDERED: NORCO1 TA2 (12:06)
[2020-02-18 12:18] LABS: CALCIUM 9.3 mg/dL (8.5-10.1); CARBON DIOXIDE 25.8 mmol/L (21-32); CREATININE SERUM 1.7 mg/dL (0.7-1.3); POTASSIUM SERUM 4.6 mmol/L (3.5-5.1)
[2020-02-18 13:50] LABS: T3 TOTAL 0.56 ng/mL
[2020-02-18 15:30] VITALS: BP 130/59
[2020-02-18 19:34] VITALS: BP 110/72
[2020-02-19 05:08] VITALS: BP 141/91
[2020-02-19 07:04] LABS: BASOPHIL % 0.7 % (0.2-1.5); PLATELET COUNT 335 x10^3mcL (152-348)
[2020-02-19 07:32] LABS: RED CELL DISTRIBUTION WIDTH 16.8 % (12.1-16.2)
[2020-02-19 07:56] LABS: CALCIUM 8.9 mg/dL (8.5-10.1); CARBON DIOXIDE 22.9 mmol/L (21-32); CREATININE SERUM 1.7 mg/dL (0.7-1.3); MAGNESIUM 1.9 mg/dL (1.8-2.4); PHOSPHOROUS 5.1 mg/dL (2.5-4.9); POTASSIUM SERUM 4.2 mmol/L (3.5-5.1)
[2020-02-19 08:23] VITALS: BP 124/75
[2020-02-19 12:09] VITALS: BP 108/78
[2020-02-19 14:50] LABS: rbc morphology (normal/abnorm) NORMAL (NORMAL)
[2020-02-19 16:19] VITALS: BP 133/91
[2020-02-19 20:31] VITALS: BP 133/87
[2020-02-20 00:26] VITALS: BP 110/78
[2020-02-20 04:55] VITALS: BP 138/93
[2020-02-20 07:46] LABS: CARBON DIOXIDE 26.4 mmol/L (21-32); CREATININE SERUM 1.5 mg/dL (0.7-1.3); POTASSIUM SERUM 4.1 mmol/L (3.5-5.1)
[2020-02-20 07:48] LABS: BASOPHIL % 0.3 % (0.2-1.5); PLATELET COUNT 314 x10^3mcL (152-348)
[2020-02-20 09:09] LABS: RED CELL DISTRIBUTION WIDTH 17.2 % (12.1-16.2)
[2020-02-20 09:32] VITALS: BP 118/83
[2020-02-20 11:03] LABS: CALCIUM 9.2 mg/dL (8.5-10.1)
[2020-02-20 12:59] VITALS: BP 100/68
[2020-02-20 15:43] LABS: rbc morphology (normal/abnorm) ABNORMAL (NORMAL)
[2020-02-20 17:22] VITALS: BP 119/78
== END 2020-02-20 20:10 | disposition left against medical advice (07) | DRG 383 ==
LOC: ED 02:53 → DU 05:44 → EDBEDREQ 05:45 → DU 15:00
PROVIDERS: Emergency Medicine; ADMIT Family Medicine; ATTEND Family Medicine
DX: L03.116 Cellulitis of left lower limb (principal); N17.0 Acute kidney failure with tubular necrosis; E43 Unspecified severe protein-calorie malnutrition; I50.9 Heart failure, unspecified; Z20.828 Contact with and (suspected) exposure to other viral communicable diseases; Z53.29 Procedure and treatment not carried out because of patient's decision for other reasons; I11.0 Hypertensive heart disease with heart failure; J45.909 Unspecified asthma, uncomplicated; E87.5 Hyperkalemia; R06.03 Acute respiratory distress; F17.210 Nicotine dependence, cigarettes, uncomplicated; E66.9 Obesity, unspecified; Z68.36 Body mass index [BMI] 36.0-36.9, adult; Z71.3 Dietary counseling and surveillance; I27.20 Pulmonary hypertension, unspecified; L29.9 Pruritus, unspecified; F15.10 Other stimulant abuse, uncomplicated
CPT/HCPCS: 82962; 83880; 84439; 85378; 87804; 97110-GP; G0378; J0692; J1200; J1940; J2543; J3370; J7030; J7050; J7060; Q0163

== ENCOUNTER 2020-03-08 23:56 | Inpatient (IN) | payer OTHER, SELFPAY ==
[~2020-03-08] VITALS: Ht 170.2 cm; Wt 158.8 kg
[~2020-03-08 23:56] MED LIST changes: +CLEOCIN HCL300 MG; +NORCO1 TA2
[2020-03-09 01:20] LABS: PLATELET COUNT 225 x10^3mcL (152-348)
[2020-03-09 01:23] LABS: RED CELL DISTRIBUTION WIDTH 17.6 % (12.1-16.2)
[2020-03-09 01:24] LABS: rbc morphology (normal/abnorm) NORMAL (NORMAL)
[2020-03-09 01:36] LABS: CALCIUM 8.7 mg/dL (8.5-10.1); CARBON DIOXIDE 22.2 mmol/L (21-32); CHLORIDE SERUM 103 mmol/L (98-107); CREATININE SERUM 1.4 mg/dL (0.7-1.3); GFR1 56 mL/min; GLUCOSE SERUM 106 mg/dL (74-106); POTASSIUM SERUM 4.4 mmol/L (3.5-5.1); SODIUM SERUM 139 mmol/L (136-145)
[2020-03-09 01:42] LABS: ALKALINE PHOSPHATASE 275 U/L (46-116); ALT/SGPT 62 U/L (16-63); AST/SGOT 67 U/L (15-37); BILIRUBIN TOTAL 2.1 mg/dL (0.20-1.00); C REACTIVE PROTEIN 8.1 mg/dL (<=0.9); TOTAL PROTEIN, SERUM 6.8 g/dL (6.4-8.2)
[2020-03-09 01:43] LABS: ALBUMIN 2.4 g/dL (3.4-5.0)
[2020-03-09 01:48] LABS: FREE THYROXINE INDEX 1.8 ug/dL (1.4-4.5); T4(THYROXINE) 5.3 ug/dL (4.7-13.3)
[2020-03-09 01:55] LABS: CK-MB 9.4 ng/mL (0-3.6)
[2020-03-09 04:30] LABS: ERYTHROCYTE SED RATE 9 mm/hr (0-20)
[2020-03-09 10:04] LABS: UA SPECIFIC GRAVITY >=1.030 (1.005-1.035); microscopic required? YES; urine erythrocyte NEGATIVE (NEGATIVE)
[2020-03-10 04:50] VITALS: BP 127/89
[2020-03-10 08:04] VITALS: BP 110/91
[2020-03-10 08:22] VITALS: BP 157/98
[2020-03-10 12:04] VITALS: BP 157/97
[2020-03-10 16:05] VITALS: BP 148/103
[2020-03-10 19:49] VITALS: BP 136/104
[2020-03-11 04:45] VITALS: BP 126/80
[2020-03-11 08:24] VITALS: BP 137/93
[2020-03-11 10:58] VITALS: Ht 170.2 cm; Wt 158.8 kg
[2020-03-11 11:03] LABS: BASOPHIL % 0.3 % (0.2-1.5); PLATELET COUNT 202 x10^3mcL (152-348)
[2020-03-11 11:14] LABS: RED CELL DISTRIBUTION WIDTH 17.9 % (12.1-16.2)
[2020-03-11 11:33] VITALS: BP 131/98
[2020-03-11 13:26] LABS: ALKALINE PHOSPHATASE 229 U/L (46-116); ALT/SGPT 64 U/L (16-63); AST/SGOT 69 U/L (15-37); BILIRUBIN TOTAL 1.94 mg/dL (0.20-1.00); CALCIUM 8.3 mg/dL (8.5-10.1); CARBON DIOXIDE 26.3 mmol/L (21-32); CHLORIDE SERUM 106 mmol/L (98-107); CREATININE SERUM 1.2 mg/dL (0.7-1.3); GFR1 > 60 mL/min; GLUCOSE SERUM 113 mg/dL (74-106); MAGNESIUM 2.2 mg/dL (1.8-2.4); PHOSPHOROUS 4.1 mg/dL (2.5-4.9); POTASSIUM SERUM 4.2 mmol/L (3.5-5.1); SODIUM SERUM 140 mmol/L (136-145); TOTAL PROTEIN, SERUM 6.9 g/dL (6.4-8.2)
[2020-03-11 13:29] LABS: ALBUMIN 2.4 g/dL (3.4-5.0)
[2020-03-11 13:58] LABS: rbc morphology (normal/abnorm) NORMAL (NORMAL)
[2020-03-11 17:07] VITALS: BP 113/76
[2020-03-11 22:02] VITALS: BP 122/80
[2020-03-12 05:37] VITALS: BP 153/96
[2020-03-12 07:18] LABS: BASOPHIL % 0.1 % (0.2-1.5)
[2020-03-12 07:20] LABS: PLATELET COUNT 206 x10^3mcL (152-348)
[2020-03-12 07:21] LABS: RED CELL DISTRIBUTION WIDTH 18.4 % (12.1-16.2)
[2020-03-12 07:30] LABS: BILIRUBIN TOTAL 2.44 mg/dL (0.20-1.00); CALCIUM 8.8 mg/dL (8.5-10.1); CARBON DIOXIDE 22.8 mmol/L (21-32); CREATININE SERUM 1.4 mg/dL (0.7-1.3); MAGNESIUM 2.3 mg/dL (1.8-2.4); PHOSPHOROUS 5.1 mg/dL (2.5-4.9); POTASSIUM SERUM 4.6 mmol/L (3.5-5.1); TOTAL PROTEIN, SERUM 7.5 g/dL (6.4-8.2)
[2020-03-12 07:41] LABS: ALBUMIN 2.7 g/dL (3.4-5.0)
[2020-03-12 07:51] LABS: rbc morphology (normal/abnorm) NORMAL (NORMAL)
[2020-03-12 10:25] VITALS: BP 118/98
[2020-03-12 16:50] VITALS: BP 116/86
[2020-03-12 20:48] VITALS: BP 181/111
[2020-03-12 22:51] VITALS: BP 104/73
[2020-03-13 05:30] VITALS: BP 106/67
[2020-03-13 13:48] LABS: AMPHETAMINE QUAL UR POSITIVE (See below)
[2020-03-13 17:02] VITALS: BP 116/91
[2020-03-13 22:01] VITALS: BP 142/117
== END 2020-03-14 02:25 | DRG 194 ==
LOC: ED 23:56 → DU 03-09 03:05 → EDBEDREQ 03-09 03:09 → DU 03-10 00:54
PROVIDERS: Internal Medicine; Specialist; ADMIT Hospitalist; ATTEND Hospitalist
PROC: 5A12012 Performance of Cardiac Output, Single, Manual (ICD-10-PCS; principal; 2020-03-14)
PROC: 0BH17EZ Insertion of Endotracheal Airway into Trachea, Via Natural or Artificial Opening (ICD-10-PCS; 2020-03-14)
DX: I11.0 Hypertensive heart disease with heart failure (principal); N17.9 Acute kidney failure, unspecified; I27.20 Pulmonary hypertension, unspecified; L03.115 Cellulitis of right lower limb; I07.1 Rheumatic tricuspid insufficiency; I27.81 Cor pulmonale (chronic); I46.9 Cardiac arrest, cause unspecified; L03.116 Cellulitis of left lower limb; K74.60 Unspecified cirrhosis of liver; J45.909 Unspecified asthma, uncomplicated; I50.9 Heart failure, unspecified; Z83.3 Family history of diabetes mellitus; Z82.49 Family history of ischemic heart disease and other diseases of the circulatory system; F17.200 Nicotine dependence, unspecified, uncomplicated; Z20.822 Contact with and (suspected) exposure to COVID-19; E11.9 Type 2 diabetes mellitus without complications; F15.10 Other stimulant abuse, uncomplicated; Z91.19 Patient's noncompliance with other medical treatment and regimen; I47.1 Supraventricular tachycardia; I48.91 Unspecified atrial fibrillation; R18.8 Other ascites; T43.625A Adverse effect of amphetamines, initial encounter; Y92.89 Other specified places as the place of occurrence of the external cause
CPT/HCPCS: 36600; 82962; 83880; 84439; 85378; G0378; J0171; J1200; J1610; J1644; J2543; J2920; J2930; J3490; J7030; J7512; Q0163; U0003